=== PATIENT | female | born 1950 | race Caucasian/White ===

== ENCOUNTER → 2016-07-02 | Outpatient (CLI) | payer MEDICARE, OTHER | END | disposition home or self-care (01) | LOC: GMAB 10:17 | PROVIDERS: ATTEND Family Medicine | DX: E03.9 Hypothyroidism, unspecified (principal) ==

== ENCOUNTER → 2016-09-01 | Outpatient (CLI) | payer MEDICARE, OTHER | END | disposition home or self-care (01) | LOC: GMAB 14:42 | PROVIDERS: ATTEND Family Medicine | DX: G44.209 Tension-type headache, unspecified, not intractable (principal) ==

== ENCOUNTER → 2017-08-26 | Outpatient (CLI) | payer MEDICARE, OTHER | LOC: GMAE 10:36 | PROVIDERS: ATTEND Family Medicine | DX: E03.9 Hypothyroidism, unspecified (principal) ==

== ENCOUNTER → 2017-11-29 | Outpatient (CLI) | payer MEDICARE, OTHER | LOC: GMAE 11:03 | PROVIDERS: ATTEND Family Medicine | DX: E03.9 Hypothyroidism, unspecified (principal) ==

== ENCOUNTER → 2018-10-31 | Outpatient (CLI) | payer MEDICARE, OTHER | LOC: GMAE 10:54 | PROVIDERS: ATTEND Family Medicine | DX: I10 Essential (primary) hypertension (principal); E03.9 Hypothyroidism, unspecified; E78.2 Mixed hyperlipidemia ==

== ENCOUNTER → 2019-01-31 | Outpatient (CLI) | payer MEDICARE, OTHER | LOC: GMAE 10:50 | PROVIDERS: ATTEND Family Medicine | DX: E03.9 Hypothyroidism, unspecified (principal) ==

== ENCOUNTER → 2019-05-03 | Outpatient (CLI) | payer MEDICARE, OTHER | DX: E03.9 Hypothyroidism, unspecified (principal) ==

== ENCOUNTER → 2019-12-28 | Outpatient (CLI) | payer MEDICARE, OTHER ==
--- NOTE | 2019-12-29 11:35 | MRI ---
EXAM DESCRIPTION: Upper Extremity,Right w/wo IV gadolinium Magnetic Resonance Imaging. CLINICAL HISTORY: LOCALIZED SWELLING MASS AND LUMP RIGHT UPPER LIMB COMPARISON: None. TECHNIQUE: Multiplanar MRI, multiple sequences, 1 mL per 5 kg body weight Dotarem gadolinium IV contrast. No adverse reactions. FINDINGS: Heterogeneous mass with mostly circumscribed margins and predominantly fatty T1 hyperintensity and T1 saturation, and STIR hypointensity in the right latissimus dorsi muscle and appears completely surrounded by muscle fibers. Approximate dimensions are 7.0 x 5.2 cm transverse plain upper aspect and 8.8 cm craniocaudal in the coronal plane. Regions of enhancement in the upper pole of the mass, inferior aspect of the mass and also minimal interstitial enhancement. The enhancement corresponds to hyperintense STIR signal. No significant mass effect on the brachial-axillary neurovascular bundle. The mass is abutting the anterior and superior parascapular muscles, and the right serratus anterior muscles. No abnormal enhancement or mass in adjacent soft tissues or muscle groups. 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 Elements of edema and possible necrosis in the tumor with enhancement. Enhancement most likely due to necrosis, but cannot exclude sarcomatous transformation. Also less likely is metastatic disease. Tissue diagnosis is recommended. Images were reviewed in person with Dr. Moraes on December 28, 2019. Electronically signed by: Shree Buck MD 12/29/2019 11:34 AM [facility]
== END ==
LOC: MRI 08:00
PROVIDERS: ATTEND Surgery
DX: Z01.818 Encounter for other preprocedural examination (principal); D17.9 Benign lipomatous neoplasm, unspecified; R60.0 Localized edema

== ENCOUNTER → 2020-02-07 | Outpatient (CLI) | payer MEDICARE, OTHER | LOC: GMAE 11:09 | PROVIDERS: ATTEND Family Medicine | DX: E03.9 Hypothyroidism, unspecified (principal) ==

== ENCOUNTER 2020-02-19 05:39 | Day surgery (SDC) | payer MEDICARE, OTHER ==
[2020-02-19] MEDS ORDERED: PROPOFOL 200 MG/20 ML VIAL IV ONE (05:40)
[2020-02-19] MEDS ORDERED: MAGNESIUM SULFATE INJ 1 GM/2 ML VIAL IVPB ONE (05:40)
[2020-02-19] MEDS ORDERED: LIDOCAINE 1% 10 ML VIAL INJ ONE (05:40)
[2020-02-19] MEDS ORDERED: DEXAMETHASONE INJ 10 MG/ML VIAL IV ONE (05:40)
[2020-02-19] MEDS ORDERED: LACTATED RINGERS 1,000 ML ONE (06:49)
[2020-02-19] MEDS ORDERED: BUPIVACAINE 0.25% W/EPI 50 ML VIAL INJ ONE (08:25)
[2020-02-19] MEDS ORDERED: LIDOCAINE 1% 50 ML VIAL INJ ONE (08:25)
[2020-02-19] MEDS ORDERED: SODIUM BICARBONATE VIAL 50 MEQ/50 ML VIAL ONE (08:26)
[2020-02-19] MEDS ORDERED: fentaNYL CITRATE INJ 50 MCG/ML 2 ML AMP ONE (10:14)
[2020-02-19] MEDS ORDERED: MIDAZOLAM INJ 2 MG/2 ML VIAL ONE (10:14)
[2020-02-19] MEDS ORDERED: KETAMINE HCL 100 MG/ML VIAL ONE (10:18)
[2020-02-19] MEDS ORDERED: DEXMEDETOMIDINE HCL 200 MCG/2 ML INJ IV ONE (10:35)
--- NOTE | 2020-02-19 11:55 | OP ---
DATE OF PROCEDURE: 02/19/20 PREOPERATIVE DIAGNOSIS: 1. Growing right axillary mass with MRI revealing it to be within the right latissimus dorsi. POSTOPERATIVE DIAGNOSIS: 1. Growing right axillary mass with MRI revealing it to be within the right latissimus dorsi, pending pathology. PROCEDURE: 1. Excision, subfascial right axillary mass. SURGEON: Gael Moraes MD. ROOM SERVICE ATTENDANT: None. ANESTHESIA: Local infiltration and general laryngeal mask anesthesia. INDICATION: The patient is a 69-year-old female with a history of a mass in her right axilla for some time. It has gotten bigger recently and become mildly uncomfortable. A workup revealed the mass within the right latissimus dorsi and she was brought to the Surgical Suite today for excision of same after the risks, benefits and alternatives to the procedure were discussed and accepted. FINDINGS: The mass was within the latissimus dorsi and was minimally stuck to the surrounding muscle tissue, but seemed to be well encapsulated. It was just over 11 cm in greatest diameter. The closed incision was 10.2 cm. PROCEDURE: The patient was brought to the Surgical Suite and placed in the supine position. She underwent general anesthesia and was prepped and draped in the usual sterile manner. At this point, a surgical time-out was taken and an incision was then marked in the right axilla, first with a marking pen and then with infiltration of anesthesia. The skin was incised with a knife. The skin incision was lengthened twice to its total length using a sharp knife. After the skin was incised, the subcutaneous tissue was dissected using blunt dissection and some electrocautery. Hemostasis was obtained with electrocautery. The muscle fascia was identified. It was incised with electrocautery and then incision was lengthened for the length of the incision through the fascia using electrocautery. The muscle was then bluntly dissected in the direction of the fibers and then retractors were placed underneath this. Using blunt dissection and some electrocautery, the mass was dissected free from the inferior aspect initially and then superiorly or proximally up into the muscle. When it was completely removed, hemostasis was obtained with electrocautery and the muscle was then irrigated with saline. The fascia of the latissimus dorsi was then loosely approximated with interrupted 3-0 Vicryl sutures. The subcutaneous tissues were then irrigated with saline and hemostasis was noted to be adequate. The skin edges were then approximated with interrupted 4-0 Nylon vertical mattress sutures. Sterile pressure dressing was applied. The patient was awakened and taken to the Recovery Room in good and stable condition. Estimated blood loss was less than 50 mL. All sponge, needle and instrument counts were correct. #[id number] MTDD
[2020-02-19 12:11] VITALS: O2SAT 100
[2020-02-19 15:28] VITALS: BP 167/85; TEMP 97.8
== END 2020-02-19 12:45 | disposition home or self-care (01) ==
LOC: AMB 05:39
PROVIDERS: ATTEND Surgery
DX: D17.21 Benign lipomatous neoplasm of skin and subcutaneous tissue of right arm (principal); I10 Essential (primary) hypertension; K59.00 Constipation, unspecified; E89.0 Postprocedural hypothyroidism; R00.1 Bradycardia, unspecified; Z88.5 Allergy status to narcotic agent; Z90.710 Acquired absence of both cervix and uterus; Z79.899 Other long term (current) drug therapy
CPT/HCPCS: 01710; 24073; 36415; 80053; 81001; 85025; 87635; 88305; 88341; 88342; 88360; 93005; J1100; J2250; J3010; J3475; J3490; J7120